=== PATIENT | male | born 1955 | race African-American/Black ===

== ENCOUNTER 2021-10-04 07:05 | Day surgery (SDC) | payer BC ==
[2021-10-02 13:48] VITALS: BMI 32.1
[2021-10-04] MEDS ORDERED: PROPOFOL 20 ML ONE ×4 (08:01)
[2021-10-04] MEDS ORDERED: LIDOCAINE HCL/PF 2% SDV 5ML VIAL ONE (08:01)
[2021-10-04 10:05] VITALS: TEMP 97.6
[2021-10-04 11:12] VITALS: BP 110/70; PULSE 65
== END 2021-10-04 10:35 | disposition home or self-care (01) ==
LOC: EDBD → FASU-ENDO 07:05
PROVIDERS: ATTEND Internal Medicine Gastroenterology
PROC: 0DBL8ZX Excision of Transverse Colon, Via Natural or Artificial Opening Endoscopic, Diagnostic (ICD-10-PCS; 2021-10-04)
PROC: 0DBN8ZX Excision of Sigmoid Colon, Via Natural or Artificial Opening Endoscopic, Diagnostic (ICD-10-PCS; 2021-10-04)
PROC: 0DBM8ZX Excision of Descending Colon, Via Natural or Artificial Opening Endoscopic, Diagnostic (ICD-10-PCS; 2021-10-04)
PROC: 0DBM8ZX Excision of Descending Colon, Via Natural or Artificial Opening Endoscopic, Diagnostic (ICD-10-PCS; 2021-10-04)
PROC: 0DBK8ZX Excision of Ascending Colon, Via Natural or Artificial Opening Endoscopic, Diagnostic (ICD-10-PCS; principal; 2021-10-04 08:44)
DX: Z86.010 Personal history of colon polyps (principal); D12.0 Benign neoplasm of cecum; D12.2 Benign neoplasm of ascending colon; D12.3 Benign neoplasm of transverse colon; D12.4 Benign neoplasm of descending colon; D12.5 Benign neoplasm of sigmoid colon
CPT/HCPCS: 88305-TC